=== PATIENT | female | born 1955 | race African-American/Black ===

== ENCOUNTER 2024-08-20 13:29 | Emergency (ER) | payer OTHER ==
[~2024-08-20] VITALS: Ht 167.6 cm; Wt 70.0 kg
[2024-08-20 13:32] VITALS: O2SAT 98
[2024-08-20 14:06] LABS: BASOPHILS % 0.9 % (0.0-2.0); EOSINOPHILS % 0.3 % (0.0-5.0); HEMATOCRIT. 41.5 % (36.0-48.0); HEMOGLOBIN. 13.9 g/dL (12.0-16.0); MEAN CORPUSCULAR HEMOGLOBIN 30.9 pg (28.0-32.0); MEAN CORPUSCULAR HGB CONC 33.4 g/dL (31.0-37.0); MEAN CORPUSCULAR VOLUME 92.5 fL (81.0-99.0); MEAN PLATELET VOLUME 8.1 fl (7.4-10.4); MONOCYTES % 5.5 % (2.0-8.0); NEUTROPHILS % 61.3 % (40.0-76.0); PLATELET 304 x1000/uL (130-400); RED BLOOD CELL COUNT 4.49 mill/uL (4.2-5.4); RED CELL DISTRIBUTION WIDTH 13.7 % (11.6-14.6); WHITE BLOOD COUNT 5.1 x1000/uL (4.5-11.0)
[2024-08-20] MEDS: PREDNISONE 20MG TABLET PO STA (14:09)
[2024-08-20] MEDS: ASPIRIN 81MG TABLET PO ONE (14:09)
[2024-08-20 14:13] LABS: CHLORIDE 103 mEq/L (98-107); POTASSIUM 3.8 mEq/L (3.5-5.1); SODIUM 138 mEq/L (136-145)
[2024-08-20 14:14] LABS: CARBON DIOXIDE 20 mEq/L (21-32)
[2024-08-20 14:15] LABS: CALCIUM 9.8 mg/dL (8.7-10.4)
[2024-08-20 14:19] LABS: GLUCOSE 142 mg/dL (70-105); UREA NITROGEN BLOOD 11 mg/dL (9-23)
[2024-08-20 14:29] LABS: TROPONIN I HIGH SENSITIVITY < 4 ng/L (3.0-34)
[2024-08-20 14:32] VITALS: PULSE 86; RESP 22
[2024-08-20] MEDS: ALBUTEROL (0.083%) 2.5MG/3ML NEB HHN STA (14:32)
[2024-08-20] MEDS: IPRATROPIUM BROMIDE (0.02%) 0.5MG/2.5ML NEB HHN STA (14:33)
[2024-08-20] MEDS: LORAZEPAM 2MG/ML INJ IV ONE (14:44)
[2024-08-20 14:56] LABS: CLARITY URINE CLEAR (CLEAR); COLOR URINE YELLOW (YELLOW); GLUCOSE URINE NEGATIVE (NEGATIVE); KETONES URINE 2+ (NEGATIVE); LEUKOCYTE ESTERASE URINE NEGATIVE (NEGATIVE); NITRITE URINE NEGATIVE (NEGATIVE); OCCULT BLOOD URINE NEGATIVE (NEGATIVE); PH URINE 7.5 (4.5-8.0); PROTEIN URINE NEGATIVE (NEGATIVE); UROBILINOGEN URINE 0.2 E.U./dL (0.2-1.0)
[2024-08-20 16:18] LABS: TROPONIN I HIGH SENSITIVITY 6 ng/L (3.0-34)
[2024-08-20 18:25] VITALS: BP 150/98; PULSE 86; RESP 16; TEMP 36.7; O2SAT 100
== END 2024-08-20 19:10 | disposition short-term general hospital (02) ==
LOC: ER 13:45
DX: R06.02 Shortness of breath (principal); J45.909 Unspecified asthma, uncomplicated; I10 Essential (primary) hypertension; Z88.8 Allergy status to other drugs, medicaments and biological substances
CPT/HCPCS: 99285; 96374; 71045; 80048; 81003; 83880; 85025; 85379; 84484; 36415; 94640; 93005; J7512; J2060; C1893; 94070